=== PATIENT | female | born 1980 | race Asian ===

== ENCOUNTER 2018-06-14 12:44 | Inpatient (IN) | payer OTHER ==
[2018-06-14] MEDS ORDERED: Penicillin G Potassium IV* 5,000,000 UNITS in NS 0.9% 100 ML* 100 ML IVPB ONE (13:12)
[2018-06-14] MEDS ORDERED: Lactated Ringers 1000 ML Bag* 1,000 ML IV ONE ×2 (13:12→17:17)
[2018-06-14] MEDS ORDERED: Buffered Lidocaine 1% SYRIN* 1 ML/SYRINGE INTRADERM ONE (13:12)
[2018-06-14 13:40] LABS: ABS Eosinophils 0.1 10^3/ul (0-0.6); ABS Monocytes 0.6 10^3/ul (0-0.8); ABS Neutrophils 7.7 10^3/ul (1.5-7.7); Eosinophil % 0.6 %; Hematocrit 39 % (35-47); Lymphocyte % 10.2 %; Mean Corpuscular HGB Conc 34 g/dL (31-36); Mean Corpuscular Hemoglobin 30 pg (27-31); Mean Corpuscular Volume 89 fL (80-97); Mean Platelet Volume 9.4 fL (7.4-10.4); Platelet Count 208 10^3/uL (150-450); Red Blood Count 4.35 10^6 /uL (3.70-4.87); Red Cell Distribution Width 13 % (10.5-15); White Blood Count 9.4 10^3/uL (3.5-10.8)
[2018-06-14] MEDS ORDERED: Lactated Ringers 1000 ML Bag* 1,000 ML IV SCH ×3 (14:00→21:00)
[2018-06-14] MEDS ORDERED: Oxytocin in LR* 20 UNITS/1,000 ML BAG IVPB SCH ×2 (14:00→21:00)
[2018-06-14] MEDS ORDERED: OBEPIDURAL* 250 ML EPIDURAL ONE (16:15)
--- NOTE | 2018-06-14 16:26 | HP ---
General Information - Reason for Visit 39 weeks for elective induction at term - General Information Maternal Age: 37 Grav: 2 Para: 1 SAB: 0 IEA: 0 Estimated Due Date: 06/17/18 Determined By: LMP Maternal Blood Type and Rh: B Positive - Results this Serology/RPR Result: Non-Reactive Rubella Result: Immune HBsAg Result: Negative HIV Result: Negative GBS Culture Result: Positive Past Medical History Delivery History: Hx Uncomplicated Vaginal Delivery Pertinent Past Medical History: See Records Pertinent Past Surgical History: None Pertinent Family History: Non-Contributory - Antepartal Records Antepartal Records: Reviewed, Uncomplicated Review of Systems Constitutional: Comfortable CV Complaint: No Respiratory: Shortness of Breath: No Genitourinary: No Bleeding, No Leaking Fluid Musculoskeletal: No Complaint Movement: Normal Exam Allergies/Adverse Reactions: Allergies No Known Allergies Allergy (Verified 06/14/18 14:22) Lab Values - Entire Visit: Laboratory Tests 06/14/18 06/14/18 13:19 13:19 WBC 9.4 RBC 4.35 Hgb 13.0 Hct 39 MCV 89 MCH 30 MCHC 34 RDW 13 Plt Count 208 MPV 9.4 Neut % (Auto) 82.4 Lymph % (Auto) 10.2 [place] % (Auto) 6.6 Eos % (Auto) 0.6 Baso % (Auto) 0.2 Absolute Neuts (auto) 7.7 Absolute Lymphs (auto) 1.0 Absolute Monos (auto) 0.6 Absolute Eos (auto) 0.1 Absolute Basos (auto) 0.0 Absolute Nucleated RBC 0.0 Nucleated RBC % 0.0 Blood Type B Positive Antibody Screen Negative - Measurements Height: 5 ft 1.5 in Weight: 152 lb Weight in lbs: [id number] Body Mass Index (BMI): 28.2 - Exam Breast: Breast Exam Deferred Extremities: No Edema Heart: Normal Rhythm/Heart Sounds HEENT: No Significant Findings Lungs: Clear Bilaterally Rectal: Rectal Exam Deferred Reflexes: DTR 2+ Targeted Exam Findings Cervical Exam: 4cm Effacement: 70% Station: -2 Presenting Part: Vertex Membrane Status: AROM EFM Findings - External Monitor Findings Baseline Heart Rate: 145 External Monitor Findings: Accelerations Present, Variability Moderate Contractions: None Assessment/Plan - Obstetrical Risk Factors Obstetrical Risk Factors: GBS Positive - Plan Plan: Induction, Admit - Anticipate Vaginal Delivery
[2018-06-14] MEDS ORDERED: Famotidine TAB* 20 MG PO PRN (17:17)
[2018-06-14] MEDS ORDERED: Sodium Citrate/Citric Acid* 15 ML UDC PO PRN (17:17)
[2018-06-14] MEDS ORDERED: Phenylephrine 40 MCG/ML SYRINGE IV PUSH PRN (17:17)
[2018-06-14] MEDS ORDERED: OBEPIDURAL* 250 ML EPIDURAL SCH (18:00)
[2018-06-14] MEDS ORDERED: Penicillin G Potassium IV* 2,500,000 UNITS in NS 0.9% 100 ML* 100 ML IVPB SCH (18:00)
[2018-06-14] MEDS ORDERED: Glycerin ADULT SUPP PR PRN (20:30)
[2018-06-14] MEDS ORDERED: Witch Hazel PAD* JAR TOPICAL PRN (20:30)
[2018-06-14] MEDS ORDERED: Acetaminophen TAB* 325 MG PO PRN (20:30)
[2018-06-14] MEDS ORDERED: Dibucaine 1% 28.35 GM TUBE PR PRN (20:30)
--- NOTE | 2018-06-14 20:39 | PROCNOTE ---
[facility] OB: Delivery Note - Delivery A Date of : 06/14/18 Time of : 20:16 [place] Sex: Male Score 1 Minute: 8 Score 5 Minutes: 9 Gestational Age in Weeks and Days at Delivery: 39 Weeks and 4 Days Delivery Method: Spontaneous Vaginal Labor: Induced Did Patient attempt ?: N/A, No Previous Amniotic Fluid: Clear Estimated Blood Loss: 200 Anesthesia/Analgesia: CEI for Labor Anesthesia Comment: Dr. Davison Delivered By: Corie Bryant - Nursery Level of Nursery: Regular/Bedside - Perineum Perineal Injury: Perineal Laceration, 1st Degree Perineal Repair: By Delivering Practioner - By Dr. Cagle - Events Delivery Events of Note: Pitocin During Labor, Full Course of Antibiotics - For GBS prophylaxis - Additional Delivery Notes Additional Delivery Notes: Progressed to complete and began pushing at 1954, crowned to delivery of liveborn male SHANICE, nuchal cord x 1 reduced. Shoulders followed easily with next push. delivered to maternal abdomen, dried and stimulated with spontaneous cry and HR >110. Apgars 8 and 9. Cord was clamped x 2 and cut by FOB after one minute. Intact radha placenta followed, fundus firm with massage. Perineum inspected and 1st degree laceration noted, repair by Dr. Cagle. MOP=953 cc. Mother and in stable condition at time of note.
[2018-06-14] MEDS ORDERED: Simethicone TAB* 80 MG TAB.CHEW PO SCH (21:00)
[2018-06-15 08:18] LABS: ABS Eosinophils 0.1 10^3/ul (0-0.6); ABS Lymphocytes 1.3 10^3/ul (1.0-4.8); ABS Neutrophils 13.8 10^3/ul (1.5-7.7); Eosinophil % 0.7 %; Hematocrit 37 % (35-47); Hemoglobin 12.2 g/dL (12.0-16.0); Lymphocyte % 8.2 %; Mean Corpuscular HGB Conc 33 g/dL (31-36); Mean Corpuscular Hemoglobin 30 pg (27-31); Mean Corpuscular Volume 89 fL (80-97); Mean Platelet Volume 9.2 fL (7.4-10.4); Platelet Count 189 10^3/uL (150-450); Red Blood Count 4.13 10^6 /uL (3.70-4.87); Red Cell Distribution Width 14 % (10.5-15); White Blood Count 16.3 10^3/uL (3.5-10.8)
[2018-06-15] MEDS ORDERED: Ferrous Gluconate TAB* 324 MG TAB PO SCH (09:00)
[2018-06-15] MEDS: Docusate CAP* 100 MG PO SCH ×3 (09:02→21:07)
[2018-06-15] MEDS: Ibuprofen TAB* 600 MG PO PRN ×2 (12:02→18:00)
[2018-06-16] MEDS: Ibuprofen TAB* 600 MG PO PRN (09:37)
[2018-06-16] MEDS: Docusate CAP* 100 MG PO SCH ×2 (09:37→13:39)
[2018-06-16 10:56] VITALS: BP 103/64
== END 2018-06-16 18:57 | disposition home or self-care (01) | DRG 807 ==
LOC: MCHOBOUT 12:44 → MCHOB 13:34
PROVIDERS: ADMIT Obstetrics & Gynecology; ATTEND Obstetrics & Gynecology
PROC: 10E0XZZ Delivery of Products of Conception, External Approach (ICD-10-PCS; principal; 2018-06-14)
PROC: 4A1HXCZ Monitoring of Products of Conception, Cardiac Rate, External Approach (ICD-10-PCS; 2018-06-14)
PROC: 10907ZC Drainage of Amniotic Fluid, Therapeutic from Products of Conception, Via Natural or Artificial Opening (ICD-10-PCS; 2018-06-14)
PROC: 0HQ9XZZ Repair Perineum Skin, External Approach (ICD-10-PCS; 2018-06-14)
PROC: 3E033VJ Introduction of Other Hormone into Peripheral Vein, Percutaneous Approach (ICD-10-PCS; 2018-06-14)
DX: O69.81X0 Labor and delivery complicated by cord around neck, without compression, not applicable or unspecified (principal); O99.824 Streptococcus B carrier state complicating childbirth; O70.0 First degree perineal laceration during delivery; Z37.0 Single live birth; Z3A.39 39 weeks gestation of pregnancy
CPT/HCPCS: 36415; 85025; 86850; 86900; 86901; A9270-GY; J2540